=== PATIENT | male | born 1990 | race Caucasian/White ===

== ENCOUNTER 2019-09-19 22:14 | Emergency (ER) | payer SELFPAY ==
[~2019-09-19] VITALS: Ht 188 cm; Wt 88.6 kg
[2019-09-19 22:20] VITALS: Ht 188 cm; Wt 88.6 kg
[2019-09-19] MEDS ORDERED: KEFLEX500 MG PO (23:58)
[2019-09-20 00:40] VITALS: BP 127/77
== END 2019-09-20 00:40 | disposition home or self-care (01) ==
LOC: D.ER 22:14
DX: S91.119A Laceration without foreign body of unspecified toe without damage to nail, initial encounter (principal)

== ENCOUNTER 2019-09-26 11:50 | Emergency (ER) | payer SELFPAY ==
[~2019-09-26] VITALS: Ht 188 cm; Wt 86.4 kg
[~2019-09-26 11:50] MED LIST: KEFLEX500 MG PO
[2019-09-26 11:55] VITALS: BP 119/74; Ht 188 cm; Wt 86.4 kg
== END 2019-09-26 12:16 | disposition home or self-care (01) ==
LOC: D.ER 11:50
DX: Z48.00 Encounter for change or removal of nonsurgical wound dressing (principal)

== ENCOUNTER 2019-09-28 09:00 | Emergency (ER) | payer SELFPAY ==
[~2019-09-28] VITALS: Ht 188 cm; Wt 84.1 kg
[2019-09-28 09:14] VITALS: BP 129/59; Ht 188 cm; Wt 84.1 kg
== END 2019-09-28 09:19 | disposition home or self-care (01) ==
LOC: D.ER 09:00
DX: Z48.02 Encounter for removal of sutures (principal)

== ENCOUNTER 2020-04-02 08:21 | Emergency (ER) | payer SELFPAY ==
[~2020-04-02] VITALS: Ht 188 cm; Wt 88.6 kg
[2020-04-02 08:26] VITALS: BP 133/71; Ht 188 cm; Wt 88.6 kg
[2020-04-02] MEDS ORDERED: TYLENOL #4 W/CO1 TAB PO (09:16)
[2020-04-02] MEDS ORDERED: NAPROSYN500 MG PO (09:16)
== END 2020-04-02 09:24 | disposition home or self-care (01) ==
LOC: D.ER 08:21
DX: S20.211A Contusion of right front wall of thorax, initial encounter (principal); R07.89 Other chest pain; X58.XXXA Exposure to other specified factors, initial encounter

== ENCOUNTER 2020-11-27 11:06 | Emergency (ER) | payer OTHER ==
[~2020-11-27] VITALS: Ht 188 cm; Wt 93.2 kg
[~2020-11-27 11:06] MED LIST changes: +NAPROSYN500 MG PO; +TYLENOL #4 W/CO1 TAB PO
[2020-11-27 11:16] VITALS: BP 119/67; Ht 188 cm; Wt 93.2 kg
[2020-11-27] MEDS ORDERED: PEPCID AC20 MG PO (12:48)
[2020-11-27] MEDS ORDERED: MEDROL DOSE PACK4 MG PO (12:48)
[2020-11-27] MEDS ORDERED: ZANAFLEX4 MG PO (12:48)
[2020-11-27] MEDS ORDERED: DICLOFENAC SODI50 MG PO (12:48)
== END 2020-11-27 15:38 | disposition home or self-care (01) ==
LOC: D.ER 11:06
DX: M54.5 Low back pain (principal); K21.9 Gastro-esophageal reflux disease without esophagitis; M79.672 Pain in left foot

== ENCOUNTER 2020-12-12 12:31 | Emergency (ER) | payer OTHER ==
[~2020-12-12] VITALS: Ht 188 cm; Wt 95.5 kg
[~2020-12-12 12:31] MED LIST changes: +DICLOFENAC SODI50 MG PO; +MEDROL DOSE PACK4 MG PO; +PEPCID AC20 MG PO; +ZANAFLEX4 MG PO
[2020-12-12 13:04] VITALS: BP 121/48; Ht 188 cm; Wt 95.5 kg
[2020-12-12] MEDS ORDERED: NAPROSYN500 MG PO (15:20)
== END 2020-12-12 16:06 | disposition home or self-care (01) ==
LOC: D.ER 12:31
DX: S83.411A Sprain of medial collateral ligament of right knee, initial encounter (principal); K21.9 Gastro-esophageal reflux disease without esophagitis; X58.XXXA Exposure to other specified factors, initial encounter